=== PATIENT | female | born 1980 | race Caucasian/White ===

== ENCOUNTER 2016-08-05 22:51 | Emergency (ER) | payer BC ==
[~2016-08-05 22:51] MED LIST: "\\\"MUSCLE RELAXER\\\""; EFFEXOR PO; SYNTHROID PO
[2016-08-05 23:14] LABS: URINE SOURCE CLEAN CATCH
[2016-08-05 23:17] LABS: MICRO INDICATED? NO; URINE APPEARANCE CLEAR; URINE BILIRUBIN NEG (NEG); URINE BLOOD NEG (NEG); URINE COLOR YELLOW; URINE GLUCOSE NEG (NORM); URINE KETONE NEG (NEG); URINE LEUKOCYTE ESTERASE NEG (NEG); URINE NITRATE NEG (NEG); URINE PH 5.5 (5-8); URINE PROTEIN TRACE (NEG); URINE SPECIFIC GRAVITY >=1.030 (1.003-1.035); URINE UROBILINOGEN 0.2 MG/DL (NORM)
[2016-08-05 23:33] LABS: BASOPHIL# 0.1 X10e3 (0-0.3); BASOPHIL% 0.6 % (0-2.5); HEMOGLOBIN 14.3 gm/dL (12.0-16.0); LYMPHOCYTE# 2.4 X10e3 (1.0-3.5); LYMPHOCYTE% 26.5 % (17.0-45.0); MEAN CELL VOLUME 86.6 FL (83-96); MEAN CORPUSCULAR HEMOGLOBIN 28.2 PG (28-34); MEAN CORPUSCULAR HGB CONC 32.6 g/dL (30-36); MEAN PLATELET VOLUME 7.6 FL (6.5-11.5); MONOCYTE# 0.4 X10e3 (0-1.0); MONOCYTE% 4.2 % (3.0-12.0); NEUTROPHIL# 6.3 X10e3 (1.5-7.1); NEUTROPHIL% 68.7 % (40-75); PLATELET COUNT 298 X10e3 (140-420); RED BLOOD COUNT 5.08 X10e (3.90-5.30); RED CELL DISTRIBUTION WIDTH 14.9 % (11.0-15.5); WHITE BLOOD COUNT 9.2 X10e3 (4.0-10.5)
[2016-08-05 23:34] LABS: DIFF IND NO
[2016-08-05 23:49] LABS: ALBUMIN SERUM 4.1 g/dL (3.5-5.0); BILIRUBIN, DIRECT 0.2 mg/dL (0.0-0.2); BILIRUBIN,INDIRECT 0.7 mg/dL (0.0-0.9); BILIRUBIN,TOTAL 0.9 mg/dL (0.2-2.0); CALCIUM SERUM 9.3 mg/dL (8.4-10.2); CREATININE SERUM 0.8 mg/dL (0.6-1.4); GLOM FILT RATE Estimated 94.3 mL/min (>60); PROTEIN TOTAL SERUM 7.6 g/dL (6.0-8.3)
== END 2016-08-06 00:19 | disposition home or self-care (01) ==
LOC: SED 22:51
PROVIDERS: Emergency Medicine
DX: R19.7 Diarrhea, unspecified (principal); R10.84 Generalized abdominal pain; F41.9 Anxiety disorder, unspecified; Z90.710 Acquired absence of both cervix and uterus; Z90.49 Acquired absence of other specified parts of digestive tract; Z79.899 Other long term (current) drug therapy
CPT/HCPCS: 36415; 80048; 80076; 81003; 85025; 96361; 96374; 96375; 99284; J2405